=== PATIENT | female | born 1965 ===

== ENCOUNTER 2018-10-24 03:09 | Observation (INO) ==
[2018-10-24] MEDS ORDERED: 0.9 % Sodium Chloride 1,000 ML IVC ONE (03:39)
[2018-10-24] MEDS ORDERED: Ondansetron 4 MG/2 ML VIAL IVP ONE (03:39)
[2018-10-24] MEDS ORDERED: Isovue-370 500 ML INFUS..BTL IV ONE (03:40)
[2018-10-24 03:47] LABS: Basophils % 0.4 %; Eosinophils % 0.1 %; Hematocrit 38.9 % (35.3-44.9); Hemoglobin 12.9 g/dL (11.5-15.4); Immature Granulocytes % 0.3 % (0-4); Lymphocytes # 0.8 K/mcL (0.6-4.6); Mean Corpuscular HGB Conc 33.2 g/dL (31.6-35.5); Mean Corpuscular Volume 87.4 fL (83.0-100.0); Monocytes # 0.2 K/mcL (0.0-1.3); Monocytes % 2.2 %; Neutrophils # 6.3 K/mcL (1.6-8.9); Platelet Count 207 K/mcL (140-400); Red Blood Count 4.45 M/mcL (3.82-4.97); Red Cell Distribution Width 12.6 % (11.5-14.5)
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
[2018-10-24] MEDS ORDERED: *HR* FentaNYL (PF) 100 MCG/2 ML VIAL IVP ONE (04:00)
[2018-10-24 04:07] LABS: Alanine Aminotransferase 30 Units/L (7-52); Albumin 4.9 g/dL (3.5-5.7); Albumin/Globulin Ratio 1.6 (1.1-2.2); Alkaline Phosphatase 82 Units/L (34-104); Aspartate Amino Transferase 18 Units/L (13-39); BUN/Creatinine Ratio 32 (6-26); Blood Urea Nitrogen 22 mg/dL (6-20); Carbon Dioxide 27 mEq/L (23-29); Chloride 103 mEq/L (98-107); Globulin 3.1 g/dL (2.4-3.5); Glucose 178 mg/dL (70-105); Osmolality,Calculated 298 (280-300); Potassium 3.8 mEq/L (3.5-5.1); Sodium 140 mEq/L (136-145); eGFR For Non-African Americans > 60 (> 60)
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
[2018-10-24 04:41] LABS: Troponin I < 0.03 ng/mL (< 0.04)
[2018-10-24] MEDS ORDERED: Promethazine 25 MG in 0.9 % Sodium Chloride 50 ML IVPB ONE (05:09)
[2018-10-24] MEDS ORDERED: Scopolamine Patch 1.5 MG PATCH.TD72 TD ONE (05:09)
[2018-10-24] MEDS ORDERED: Naloxone 0.4 MG/ML INJ IVP PRN (07:54)
[2018-10-24] MEDS ORDERED: Ondansetron 4 MG/2 ML VIAL IVP PRN (07:58)
--- NOTE | 2018-10-24 10:41 | Internal Med History&Physical ---
Date of Encounter: 10/24/18 Time of Encounter: 11:00 Internal Medicine - H&P: HPI Chief complaint: dizziness Admitted From: Home History of present illness: Ms. Jerez is a 53 year old female with past medical history of hyperlipidemia, multiple ear surgeries, came in with complain of dizziness and nausea and vomiting. Her symptoms started about 9:30 yesterday. He started having dizziness associated later with nausea and vomiting. She had had multiple episodes of nonbloody vomiting. Denies similar episodes of dizziness or nausea vomiting in past. Dizziness was worse with any movement. Denies any worsening of hearing however does complain she has decreased hearing at baseline due to her previous ear problems. Denies any discharge from any ears or nose. Denies any sore throat. Denies any chest pain, shortness of breath, abdominal pain, bowel or urinary complaints. Has mild frontal headache. Denies any fevers, chills, tingling numbness or weakness in any part of her body. Past Med Surg Social Fam HX - Past Medical History Attestation: Yes The following information was validated with the patient. Medical history: hyperlipidemia, other Additional medical history: ear problems Psychiatric history: no psych history - Past Surgical History Surgical History: hysterectomy Additional surgical history: JAW SX, HYSTERECTOMY,EAR DRUM REPLACEMENT,CARPAL TUNNEL - Social History Smoking Status: Former smoker Smokeless Tobacco Status: No Alcohol use: none Drug use: none - Family History Father Hx Family Cardiac Disorders: Yes (sudden cardiac from [place] at 42.) Internal Medicine - H&P: Meds No Known Home Drugs 10/24/18 [History] Allergy/AdvReac Type Severity Reaction Status Date / Time ampicillin Allergy Rash Verified 10/24/18 03:14 All Systems PM: A 10-system review of systems was performed and is negative for pertinent findings except as documented above in the HPI. - Constitutional Vitals: Temp Pulse Resp BP Pulse Ox 97.8 F 51 16 143/74 96 10/24/18 06:57 10/24/18 06:57 10/24/18 06:57 10/24/18 06:57 10/24/18 06:57 Exam: Constitutional: Vitals as noted. Conversant. In mild distress due to dizziness. No moving her head. Eyes : PEARLA. Horizontal nystagmus noted on head movement on both side. Unable to keep eye open due to dizziness. ENT : Grossly normal hearing. Oropharyngeal exam unremarkable. TM tube present on Lt. Couldn't visualize Rt TM completely. abnormal with erythema. Respiratory : Clear to auscultation bilaterally. No accessory muscle use, rales, rhonchi or wheezes Cardiovascular : Bradycardia, +S1, +S2. no murmur, gallop, rubs. No chest wall tenderness GI/Abdominal : Soft, Non-tender, Non-distended, normal bowel sounds, soft, no peritoneal signs. no orgenomegaly or mass appreciated. no hernia. Musculoskeletal: no deformity noted. no edema or cyanosis. warm extremities, pulses palpable and symmetrical in UE/LE. no calf tenderness. Neurological: AO X3, CN II-XII grossly intact, grossly normal motor and sensory exam. No neck stiffness. Skin: No skin rash, lesions or ulcers noted. Pych: Good insight and judgement. Intact memory. AOx3. Internal Med - H&P Results - Labs CBC & Chem 7: 10/24/18 03:22 10/24/18 03:22 Labs: Short CBC 10/24/18 Range/Units 03:22 WBC 7.4 (4.3-11.1) K/mcL Hgb 12.9 (11.5-15.4) g/dL Hct 38.9 (35.3-44.9) % Plt Count 207 (140-400) K/mcL Neutrophils # 6.3 (1.6-8.9) K/mcL BMP 10/24/18 03:22 Sodium 140 Potassium 3.8 Chloride 103 Carbon Dioxide 27 BUN 22 H Creatinine 0.68 Glucose 178 H Calcium 10.0 Cardiac Enzymes 10/24/18 Range/Units 03:22 Troponin I < 0.03 (< 0.04) ng/mL Liver Function 10/24/18 Range/Units 03:22 Total Bilirubin 1.0 (0.3-1.0) mg/dL AST 18 (13-39) Units/L ALT 30 (7-52) Units/L Alkaline Phosphatase 82 (34-104) Units/L Albumin 4.9 (3.5-5.7) g/dL - Impressions ITS Impressions Angiography CT 10/24/18 03:40 IMPRESSION: Unremarkable CTA of the head and neck. D/ / Remy Rodriguez MD / Remy Rodriguez MD Interpreting Provider: Remy Rodriguez MD Neck CTA 10/24/18 03:40 IMPRESSION: Unremarkable CTA of the head and neck. D/ / Remy Rodriguez MD / Remy Rodriguez MD Interpreting Provider: Remy Rodriguez MD - Assessment and plan (1) Dizziness Current Visit: Yes Status: Acute Assessment and plan: - Likely peripheral vertigo - Patient without any recent URI. - Long history of ear problems with history of right TM replacement and tympan ostomy. - Possible BPPV vs vestibular neuronitis. - Continue when necessary meclizine and scopolamine patch for symptomatic control. Continue promethazine for nausea given prolonged QTC. - ENT consulted. Recommendations appreciated (2) Bradycardia Current Visit: Yes Status: Acute Assessment and plan: - Patient with sinus bradycardia. Currently heart rate 50s and sinus rhythm - Possibly related to vagal stimulation due to ENT reasons and N/V. - EKG with sinus rhythm. EKG with prolonged QTC. We will avoid QT prolonging medications. - Cardiology recommendation appreciated. (3) HLD (hyperlipidemia) Current Visit: Yes Status: Acute Qualifiers: Hyperlipidemia type: unspecified Qualified Code(s): E78.5 - Hyperlipidemia, unspecified - Time Spent With Patient Total time spent is greater than 50% in coordination of care (as documented) at patient's floor/unit and/or counseling patient:
[2018-10-24] MEDS ORDERED: *HR* Promethazine 25 MG/ML VIAL IM PRN (11:51)
--- NOTE | 2018-10-24 12:17 | Electrophysiology Consult Note ---
<Elizabeth Unger Mario - Last Filed: 10/24/18 12:14> Date of Encounter: 10/24/18 Time of Encounter: 12:00 Assessment and Plan (1) Vertigo Status: Acute Symptoms consistent with Vertigo. Bradycardia (known) is not likely related as HR's have been in the 50's-60's for years. ENT consulted, started on antivert. No further recommendations from CV standpoint. Mgmt per primary service. (2) Bradycardia Status: Acute Hx of sinus bradycardia, patient reports HR in the 50's-60's for years. Telemetry review: avg HR=57 SB. Min=39 during nocturnal hours. No significant pause. Do not suspect bradycardia is related to presenting symptoms. Check TSH, Mg. (3) QT prolongation Status: Acute ECG shows QT prolongation, however may be secondary to lead artifact on ECG. Will repeat ECG now. Family hx: reports father at 41 due to ID at work. Recommend outpatient follow-up with Cardiology in 4-6 weeks. Discussion w patient/family: The assessment and plan as outlined above was discussed with the patient and/or family members who expressed understanding and agreement. All questions were answered. Thank you for involving us in the care of your patient. Please call with any questions. The patient will be discussed and reviewed with Dr. Moncho Mullins; changes to be made accordingly. History of Present Illness Consult date: 10/24/18 Requesting physician: Adri Easley Consult reason: Bradycardia Chief complaint: Dizziness History of present illness: Ms. Jerez is a 53 year old female with no significant past medical history who presented to the ED with complaints of persistent dizziness since early 12/24/17. Associated symptoms include nausea with vomiting with any body movement. Symptoms improve with "holding still" and keeping eyes closed; again, symptoms worsen with head/body movement. Denies prior episodes or similar symptoms in the past. Denies chest pain/discomfort, pre-syncope, or syncope. No dyspnea or leg edema described. Denies any recent sick contacts or new medications. Reports takes 1-2 tablets of OTC sinus medication almost daily, year round. No prior CV testing reported. Cardiology consulted today due to concern for symptomatic bradycardia; however patient reports HR's have been in the 50's-60's for years. Past Med Surg Social Fam HX - Past Medical History Attestation: Yes The following information was validated with the patient. Source: patient Medical history: hyperlipidemia, other Additional medical history: ear problems Psychiatric history: no psych history - Past Surgical History Surgical History: hysterectomy Additional surgical history: JAW SX, HYSTERECTOMY,EAR DRUM REPLACEMENT,CARPAL TUNNEL - Social History Smoking Status: Former smoker Smokeless Tobacco Status: No Alcohol use: none Drug use: none - Family History Brother Living Status: Still Living Hx Family Cardiac Disorders: Yes (HTN) Father Hx Family Cardiac Disorders: Yes (sudden cardiac from ID at 42.) Mother Living Status: Age at : 72 Cause of : reports ID Medications and Allergies Ondansetron HCl [Zofran] 4 mg PO Q12HR PRN 3 Days #6 tab 10/24/18 [Rx] RX: LORazepam [Ativan] 2 mg PO TID PRN 4 Days #12 tablet 10/24/18 [Rx] RX: predniSONE [PredniSONE] 60 mg PO DAILY #21 tablet 10/24/18 [Rx] Allergy/AdvReac Type Severity Reaction Status Date / Time ampicillin Allergy Rash Verified 10/24/18 03:14 All Systems Review: The remainder of the systems were reviewed and are negative - Cardiovascular Cardiovascular: as per HPI Physical Examination Vital Signs, Last 4 Hours Temp Pulse Resp BP Pulse Ox 10/24/18 11:59 97.9 F 48 16 127/72 93 General: Conversant, Other (unable to open eyes due to dizziness) Cardiac: Reg Rate and Rhythm, Normal S1 and S2 Lungs: Normal Breath Sounds Neuro: Alert and responsive Abdomen: Soft Skin: No rashes noted on visualized skin Musculoskeletal: No Chest Wall Tenderness Extremities: No Edema, Normal Pulses Results 10/24/18 03:22 10/24/18 03:22 Lab Results 10/24/18 10/24/18 03:22 03:22 WBC 7.4 Hgb 12.9 Hct 38.9 Plt Count 207 Sodium 140 Potassium 3.8 Chloride 103 Carbon Dioxide 27 BUN 22 H Creatinine 0.68 Glucose 178 H Calcium 10.0 Total Bilirubin 1.0 AST 18 ALT 30 Alkaline Phosphatase 82 Troponin I < 0.[address] 10/24/18 03:40 IMPRESSION: Unremarkable CTA of the head and neck. D/ / Remy Rodriguez MD / Remy Rodriguez MD Interpreting Provider: Remy Rodriguez MD Neck CTA 10/24/18 03:40 IMPRESSION: Unremarkable CTA of the head and neck. D/ / Remy Rodriguez MD / Remy Rodriguez MD Interpreting Provider: Remy Rodriguez MD - EKG Interpretation EKG results cardiology: personally reviewed Consult Discharge Plan - Plan Instructions: Lorazepam (By mouth), Prednisone (By mouth), Ondansetron (By mouth) Referrals: Rhiannon Yang CNP [Primary Care Provider] - (Please call and schedule a hospital follow up in 5-7 days) Prescriptions: Ondansetron HCl [Zofran] 4 mg PO Q12HR PRN 3 Days #6 tab PRN Reason: Nausea And Vomiting RX: LORazepam [Ativan] 2 mg PO TID PRN 4 Days #12 tablet PRN Reason: Dizziness RX: predniSONE [PredniSONE] 60 mg PO DAILY #21 tablet <Moncho Mullins - Last Filed: 10/25/18 09:41> Date of Encounter: 10/25/18 - Attending Attestation I have personally performed a face to face evaluation on this patient. I have reviewed and agree with the care plan. History and Exam by me shows: Bradycardia likely secondary to vagal stimulus. QT prolongation appears to be artifact. Does have slurred upstroke of QRS but normal NC. Can follow up as outpt. Assessment and Plan Discussion w patient/family: The assessment and plan as outlined above was discussed with the patient and/or family members who expressed understanding and agreement. All questions were ans wered. Thank you for involving us in the care of your patient. Please call with any questions. History of Present Illness History of present illness: Ms. Jerez is a 53 year old female All Systems Review: The remainder of the systems were reviewed and are negative Results 10/24/18 03:22 10/24/18 03:22 Lab Results 10/24/18 13:35 Magnesium 1.9 TSH 0.421
[2018-10-24] MEDS ORDERED: Ondansetron ODT 4 MG TAB.RAPDIS SL PRN (13:08)
[2018-10-24] MEDS ORDERED: *HR* LORazepam 1 MG TABLET PO PRN (13:09)
[2018-10-24] MEDS ORDERED: predniSONE 20 MG TABLET PO SCH (13:15)
--- NOTE | 2018-10-24 13:15 | ENT - Consult Note ---
Date of Encounter: 10/24/18 Time of Encounter: 13:11 Assessment and Plan (1) Vestibular neuritis Current Visit: Yes Status: Acute Based on the patient's clinical history and physical exam findings, I feel that the patient has left vestibular neuritis. I have discussed with the patient that treatment with a prednisone taper will help with her symptoms of dizziness but she will continue to have symptoms for at least 5-7 days. The acute symptoms should improve more quickly on a 10 day prednisone taper but she will have some residual imbalance for the next several months and would benefit from vestibular physical therapy as an outpatient. Symptomatically, I have begun her on lorazepam 2 mg every 8 hours as needed for dizziness. I have d/c'd the meclizine and promethezine as I do not feel this will help with her vestibular neuritis. She may also benefit from Zofran for her nausea. There is some question of QT prolongation on the initial EKG from the emergency room. However the patient has had a repeat EKG today and I have asked pharmacy to speak with the electrophysiology service to verify if she does have QT prolongation. If she does not, she would benefit from Zofran. There is no indication for antiviral therapy as this will not improve her symptoms. I also do not feel that the patient needs any further imaging at this time. Patient can go home from my standpoint and in fact the patient states that she wants to go home herself. I have discussed with the patient that she will continue to have symptoms of dizziness for the next several days and if she is tolerating oral medication, she can take this at home. Discussed above in detail with patient and nursing staff. Questions answered. Qualifiers: Laterality: left Qualified Code(s): H81.22 - Vestibular neuronitis, left ear Code(s): H81.20 - Vestibular neuronitis, unspecified ear SNOMED Code(s): 622997011 History of Present Illness Consult date: 10/24/18 Reason for ENT Consult: other (dizziness) Requesting physician: Adri Easley History of present illness: The patient is a 53-year-old female who has a history of tympanostomy tube placement when she was a child and most recently 4 years ago for otitis media. She states that over the past 4 years since she has had ear tubes placed, she has had no difficulty with her ears. She states that her hearing is unchanged. She has no otorrhea or otalgia complaints. She has not seen an ENT for 3 years. The patient states that yesterday when she was at work, suddenly at 9 PM she started to feel dizzy and lightheaded. She continued to be able to work but her dizziness got progressively worse. She felt like she was moving and became very nauseated and was vomiting. She sat down at her desk and closed her eyes which she felt did not improve her symptoms. She states that after about 5 hours of her symptoms she had to call her daughter to pick her up and take her to the emergency room because she was feeling so dizzy. She does not describe true vertigo symptoms in which the room is spinning but she does feel that things are moving. She states that when she moves her body or head in any direction the dizziness feeling worsens for a short while and when she states still it gets better. When she is standing she feels that it is better to keep her eyes open but when she is lying down she feels better with her eyes closed. She does not feel that the dizziness is worse when she turns to any particular side, right or left. She does not complain of any prior viral upper respiratory or gastrointestinal symptoms. She does have a mild headache on the top of her head. She can walk to the bathroom with assistance and she was able to walk from her work to her daughter's car and also into the emergency room with the assistance of her daughter. She was evaluated in the emergency room and CT head and CTA head were both normal. She was found to have a heart rate in the upper 30s to mid 50s. Her EKG had a heart rate of 70. The patient states that her heart rate usually runs in the low 50s. She does not have any chest pain. And she did not have any difficulty with lightheadedness prior to the episode last night. Today she feels that her dizziness is about the same as it was when it started yesterday. She feels that if she lies in bed with her eyes closed, she feels much better with less dizziness. She does still have nausea and vomiting whenever she moves or tries to get up. She was given promethazine, meclizine, and a scopolamine patch which has not improved her symptoms. Past Med Surg Social Fam HX - Past Medical History Medical history: hyperlipidemia, other Additional medical history: ear problems Psychiatric history: no psych history - Past Surgical History Surgical History: hysterectomy Additional surgical history: JAW SX, HYSTERECTOMY,EAR DRUM REPLACEMENT,CARPAL TUNNEL - Social History Smoking Status: Former smoker Smokeless Tobacco Status: No Alcohol use: none Drug use: none - Family History Father Hx Family Cardiac Disorders: Yes (sudden cardiac from ID at 42.) Mother Living Status: Age at : 72 Cause of : reports ID Brother Living Status: Still Living Hx Family Cardiac Disorders: Yes (HTN) Medications and Allergies No Known Home Drugs 10/24/18 [History] Allergy/AdvReac Type Severity Reaction Status Date / Time ampicillin Allergy Rash Verified 10/24/18 03:14 ENT - ROS - Constitutional Constitutional ROS: headache(s) - EENT Nose, mouth and throat: dizziness - Cardiovascular Cardiovascular ROS IM: lightheadedness - Respiratory no cough, no dyspnea, no hemoptysis, no dyspnea on exertion, no wheezing, no snoring, no stridor, no pain on inspiration, no chest congestion, no excessive phlegm production, no change in phlegm color, no pain with cough - Gastrointestinal Gastrointestinal: no coffee ground emesis, no constipation, no diarrhea, no dyspepsia, no dysphagia, no heartburn, no nausea, no odynophagia, no vomiting - Genitourinary Genitourinary ROS: no difficulty urinating, no dysuria, no urinary frequency, no urinary incontinence, no urinary urgency - Musculoskeletal Musculoskeletal ROS: no abnormal gait, no muscle weakness, no myalgias, no neck pain, no numbness, no stiffness, no tingling - Integumentary Integumentary: no acne, no bleeding lesions, no change in hair, no change in n ails, no change in pigmentation, no changing lesions, no erythema, no furuncle, no lesions, no new lesions, no non-healing lesions, no pruritus, no rash, no skin ulcer, no sores - Neurological Neurological ROS: abnormal gait, dizziness, headache(s) - Psychiatric Psychiatric general: no abnormal sleep pattern, no anxiety, no auditory hallucinations - Endocrine Endocrine: no cold intolerance, no deeping of the voice, no excessive sweating, no fatigue, no flushing, no heat intolerance, no palpitations, no polydipsia, no polyphagia, no polyuria - Hematologic/Lymphatic no easy bleeding, no easy bruising, no lymphadenopathy - Allergic/Immunologic no tongue swelling, no throat swelling, no itchy eyes, no seasonal rhinorrhea, no uticaria, no wheezing, no GI upset with certain foods, no lip swelling ENT Exam Initial Vital Signs Temp Pulse Resp BP Pulse Ox 97.8 F 70 14 154/74 98 18 03:15 18 03:15 18 03:15 10/24/18 03:15 10/24/18 03:15 - General physical appearance well developed, well nourished, other (Lying in bed with her eyes closed.) - Eyes other (The patient has constant horizontal torsional nystagmus which does suppress with fixation. The fast component of the nystagmus is toward the right eye. The horizonal torsional nystagmus is more brisk when looking left. She does have mild horizontal nystagmus when looking right. ), PERRL - ENT Other (Ears: Normal pinnas bilaterally. The left external auditory canal is normal. The left tympanic membrane shows tympanic sclerosis and a pressure equalization tube in the anterior-inferior quadrant. The middle ear space is clear and there is no otorrhea. The right external auditory canals is normal. The right tympanic membrane shows tympanosclerosis and there is a T-tube in place anteriorly. There is no otorrhea and the middle ear space is clear. Goncalves midline, Rinne AC>BC bilaterally Nares: Normal septum and turbinates and mucosa. Normal nasal dorsum, ala and vestibule. The nasal airway is patent bilaterally. There is no mucus or purulence seen. OP/OC: Normal lips gums and dentition. The hard and soft palate are normal. The tongue is mobile without lesion. The floor mouth is soft. The posterior pharynx is normal.) - Neck no masses, trachea midline, no lymphadectomy - Neurologic CN 2-12 grossly intact, other (Finger to nose and rapid alternating movements are normal. The patient does have a unsteady gait but she is able to walk with minimal assistance. Motor strength 5 out of 5 in all extremities. Romberg is negative.) Exam Initial Vital Signs Temp Pulse Resp BP Pulse Ox 97.8 F 70 14 154/74 98 10/24/18 03:15 18 03:15 18 03:15 10/24/18 03:15 10/24/18 03:15 Results - Labs 10/24/18 03:22 10/24/18 03:22 Abnormal lab results BUN 22 mg/dL (6-20) H 10/24/18 03:22 BUN/Creatinine Ratio 32 (6-26) H 10/24/18 03:22 Glucose 178 mg/dL (70-105) H 10/24/18 03:22 Diabetes panel 10/24/18 Range/Units 03:22 Sodium 140 (136-145) mEq/L Potassium 3.8 (3.5-5.1) mEq/L Chloride 103 (98-107) mEq/L Carbon Dioxide 27 (23-29) mEq/L BUN 22 H (6-20) mg/dL Creatinine 0.68 (0.60-1.20) mg/dL Glucose 178 H (70-105) mg/dL Calcium 10.0 (8.6-10.3) mg/dL AST 18 (13-39) Units/L ALT 30 (7-52) Units/L Alkaline Phosphatase 82 (34-104) Units/L Albumin 4.9 (3.5-5.7) g/dL Calcium panel 10/24/18 Range/Units 03:22 Calcium 10.0 (8.6-10.3) mg/dL Albumin 4.9 (3.5-5.7) g/dL Pituitary panel 10/24/18 Range/Units 03:22 Sodium 140 (136-145) mEq/L Potassium 3.8 (3.5-5.1) mEq/L Chloride 103 (98-107) mEq/L Carbon Dioxide 27 (23-29) mEq/L BUN 22 H (6-20) mg/dL Creatinine 0.68 (0.60-1.20) mg/dL Glucose 178 H (70-105) mg/dL Calcium 10.0 (8.6-10.3) mg/dL Adrenal panel 10/24/18 Range/Units 03:22 Sodium 140 (136-145) mEq/L Potassium 3.8 (3.5-5.1) mEq/L Chloride 103 (98-107) mEq/L Carbon Dioxide 27 (23-29) mEq/L BUN 22 H (6-20) mg/dL Creatinine 0.68 (0.60-1.20) mg/dL Glucose 178 H (70-105) mg/dL Calcium 10.0 (8.6-10.3) mg/dL Total Bilirubin 1.0 (0.3-1.0) mg/dL AST 18 (13-39) Units/L ALT 30 (7-52) Units/L Alkaline Phosphatase 82 (34-104) Units/L Albumin 4.9 (3.5-5.7) g/dL All other labs normal. - Imaging Additional studies: CT head shows no acute abnormalities intracranially. CTA head shows normal vascular anatomy. Consult Discharge Plan - Plan Referrals: Rhiannon Yang, TOOLING ENGINEER [Primary Care Provider] -
[2018-10-24] MEDS ORDERED: *HR* Promethazine 25 MG/ML VIAL IVP PRN (13:45)
[2018-10-24 14:32] LABS: Magnesium 1.9 mg/dL (1.6-2.6)
[2018-10-24 14:45] LABS: Thyroid Stimulating Hormone 0.421 mcIU/mL (0.340-5.600)
[2018-10-24 15:53] VITALS: BP 116/71
--- NOTE | 2018-10-24 17:15 | Discharge Summary ---
- NOTES TO OUTPATIENT PROVIDER Notes to Outpatient Provider: Please follow-up EKG for QT prolongation. Orders not resulted at time of discharge: Pending orders 10/24/18 03:37 EKG [ECG 12 lead ECG] [ECG] Stat 10/24/18 12:09 ECG 12 lead ECG [ECG] Routine Date of Encounter: 10/24/18 Time of Encounter: 17:08 - Discharge Diagnosis (1) Dizziness Priority: Primary Status: Acute (2) Bradycardia Priority: Primary Status: Acute (3) HLD (hyperlipidemia) Priority: Secondary Status: Acute Qualifiers: Hyperlipidemia type: unspecified Qualified Code(s): E78.5 - Hyperlipidemia, unspecified (4) QT prolongation Priority: Secondary Status: Acute (5) Vestibular neuritis Priority: Primary Status: Acute Qualifiers: Laterality: left Qualified Code(s): H81.22 - Vestibular neuronitis, left ear Hospital course: Ms. Jerez is a 53 year old female presented with complaint of dizziness nausea and vomiting was found to have sinus bradycardia and was admitted for observation. Patient was found to have prolonged QTC on first EKG however follow-up EKG did not show any QT prolongation. Patient was seen by ENT and electrophysiology. Patient was found to have vestibular neuronitis and was started on prednisone taper. Patient has low heart rate for many years and no further investigation recommended by cardiology/EP. TSH and magnesium were within normal limits. Patient wanted to go home. She is otherwise otherwise stable. We will discharge the patient with prednisone taper. We will also give lorazepam and Zofran to last until seen by PCP. Discharge discussed with: patient, family, nurse, animal nutrition consultant - Time Spent with Patient Total time spent providing and/or coordinating discharge services: Greater than 30 minutes (38) - Discharge Medications Prescriptions: Ondansetron HCl [Zofran] 4 mg PO Q12HR PRN 3 Days #6 tab PRN Reason: Nausea And Vomiting LORazepam [Ativan] 2 mg PO TID PRN 4 Days #12 tablet PRN Reason: Dizziness predniSONE [PredniSONE] 60 mg PO DAILY #21 tablet Home Medications: LORazepam [Ativan] 2 mg PO TID PRN 4 Days #12 tablet 10/24/18 [Rx] Ondansetron HCl [Zofran] 4 mg PO Q12HR PRN 3 Days #6 tab 10/24/18 [Rx] predniSONE [PredniSONE] 60 mg PO DAILY #21 tablet 10/24/18 [Rx] Allergies/Adverse Reactions: Allergy/AdvReac Type Severity Reaction Status Date / Time ampicillin Allergy Rash Verified 10/24/18 03:14 Date of admission: 10/24/18 05:58 Primary care physician: Rhiannon Yang CNP Consults: 10/24/18 07:56 Consult to Cardiology [CONS] Routine Comment: Consulting Provider: Cardiology Cory Reason for Consult: bradycardia Call Completed: Yes 10/24/18 11:20 Consult to ENT [CONS] Routine Consulting Provider: ENT Cory Reason for Consult: dizziness, suspect peripheral cause Call Completed: Yes Discharging clinician: Adri Easley - Constitutional Vitals: Temp Pulse Resp BP Pulse Ox 98.1 F 54 16 116/71 96 10/24/18 15:50 10/24/18 15:50 10/24/18 15:50 10/24/18 15:50 10/24/18 15:50 Exam: Constitutional: Vitals as noted. Conversant. In mild distress due to dizziness. No moving her head. Eyes : PEARLA. Horizontal nystagmus noted on head movement on both side. Unable to keep eye open due to dizziness. ENT : Grossly normal hearing. Oropharyngeal exam unremarkable. TM tube present on Lt. Couldn't visualize Rt TM completely. abnormal with erythema. Respiratory : Clear to auscultation bilaterally. No accessory muscle use, rales, rhonchi or wheezes Cardiovascular : Bradycardia, +S1, +S2. no murmur, gallop, rubs. No chest wall tenderness GI/Abdominal : Soft, Non-tender, Non-distended, normal bowel sounds, soft, no peritoneal signs. no orgenomegaly or mass appreciated. no hernia. Musculoskeletal: no deformity noted. no edema or cyanosis. warm extremities, pulses palpable and symmetrical in UE/LE. no calf tenderness. Neurological: AO X3, CN II-XII grossly intact, grossly normal motor and sensory exam. No neck stiffness. - Patient Status Disposition: Home, Self-Care Condition: Good - Discharge Instructions Follow Up With: Rhiannon Yang CNP [Primary Care Provider] - - Diet and Activity Activity: other (no driving while dizziness ongoing, activity as tolerated to avoid falls)
--- NOTE | 2018-10-26 14:02 | Electrocardiograph Report ---
[place] [id number] Test Date: 2018-10-24 Pat Name: Yamilet Jerez Department: EXAM4 Room: 2A39 Gender: F Note Taker: : 1965 Requested By: Michelle Rios Order Number: [id number] Reading MD: David Lomax Measurements Intervals [place] Rate: 70 P: 48 SD: 176 QRS: 6 QRSD: 88 T: 12 QT: 543 QTc: 587 Interpretive Statements Sinus rhythm Borderline T abnormalities, anterior leads Prolonged QT interval Electronically Signed On 10-26-2018 14:01:17 EST by David Lomax
--- NOTE | 2018-10-26 14:50 | Electrocardiograph Report ---
[place] [address] Test Date: 2018-10-24 Pat Name: Yamilet Jerez Department: 109 Room: 2A39 Gender: F Nurse Licensed Practical: : 1965 Requested By: Elizabeth Unger Order Number: [id number] Reading MD: David Lomax Measurements Intervals [place] Rate: 47 P: 53 WV: 173 QRS: 0 QRSD: 88 T: -3 QT: 481 QTc: 444 Interpretive Statements SINUS BRADYCARDIA WITH SINUS ARRHYTHMIA MINIMAL VOLTAGE CRITERIA FOR LVH, CONSIDER NORMAL VARIANT Electronically Signed On 10-26-2018 14:48:55 EST by David Lomax
== END 2018-10-24 17:42 | disposition home or self-care (01) ==
LOC: EMEROOARM 03:09 → 2ANU 03:09
PROVIDERS: ADMIT Family Medicine; ATTEND Family Medicine